=== PATIENT | female | born 1955 | race Caucasian/White ===

== ENCOUNTER 2022-02-04 10:43 | Outpatient (RCR) | payer MEDICARE, BC, SELFPAY | END 2022-02-17 23:59 | disposition home or self-care (01) | LOC: INF 10:43 | PROVIDERS: PCP Family Medicine; Visit Provider Family Medicine | DX: C83.10 Mantle cell lymphoma, unspecified site (principal); Z29.8 Encounter for other specified prophylactic measures | CPT/HCPCS: 96372; Q0221 ==